=== PATIENT | male | born 1970 | race Caucasian/White ===

== ENCOUNTER → 2017-12-09 | Outpatient (CLI) | payer OTHER ==
--- NOTE | 2017-12-09 10:31 | RADRPT ---
EXAM DATE/TIME: 12/09/2017 09:53 [place] COMPARISON: No previous studies available for comparison. INDICATIONS : Flank pain. MEDICAL HISTORY : Hypertension. Diabetes. Cdiff. SURGICAL HISTORY : Cholecystectomy. Small intestine removal. Left ankle and knee surgery. ENCOUNTER: Initial ACUITY: 1 week PAIN SCORE: 5/10 LOCATION: Bilateral flank MEASUREMENTS: RIGHT KIDNEY: 12.1 x 6.5 x 5.9 cm LEFT KIDNEY: 12.2 x 5.6 x 5.6 cm FINDINGS: RIGHT KIDNEY: Renal cortex is normal in thickness and echotexture. No hydronephrosis, stone, or mass. LEFT KIDNEY: Renal cortex is normal in thickness and echotexture. No hydronephrosis or mass. There is a 3 or 4 m m calcification area specular echogenicity mid pole kidney suggesting a calyceal nonobstructing stone . BLADDER: Within normal limits given the degree of distension. CONCLUSION: Suggestion of a 3 or 4 mm left kidney midpole calyceal nonobstructing stone. Scott Washington MD on December 09, 2017 at 10:26 Board Certified Radiologist. This report was verified electronically.
== END ==
LOC: HRAD 08:58
PROVIDERS: ATTEND Family Medicine
DX: R10.9 Unspecified abdominal pain (principal)
CPT/HCPCS: 76775